=== PATIENT | female | born 1990 | race Caucasian/White ===

== ENCOUNTER 2019-07-07 23:49 | Emergency (ER) | payer BC ==
[~2019-07-07] VITALS: Ht 165.1 cm; Wt 59.0 kg
--- NOTE | 2019-07-07 23:50 | NUR ---
PT CAME IN C/O VAGINAL BLEEDING SINCE THIS MORNING WITH ABDOMINAL CRAMPS STATES: +10WKS [id number] AOX3, ABLE TO SPEAK CLEAR AND COMPLETE SENTENCES DENIES FEVERS/CHILLS/NVD/JOINT PAIN MONITORED ACCORDINGLY
--- NOTE | 2019-07-08 00:04 | NUR ---
AT BEDSIDE FOR DANAY
[2019-07-08 00:10] VITALS: BP 121/89
--- NOTE | 2019-07-08 00:10 | NUR ---
Patient discharged to home in stable conditon. Written and verbal after care instructions given. Patient verbalizes understanding of instructions. VSS stable for discharge. Patient a/o x4. patient self ambulatory with steady gait. Patient exit care package and personal belongings taken home with the patient at discharge.
== END 2019-07-08 00:11 | disposition home or self-care (01) ==
LOC: ER 23:50
DX: O20.8 Other hemorrhage in early pregnancy (principal); Z3A.00 Weeks of gestation of pregnancy not specified
CPT/HCPCS: A4663